=== PATIENT | female | born 1985 | race Caucasian/White ===

== ENCOUNTER 2017-04-26 19:20 | Emergency (ER) | payer BC ==
--- NOTE | 2017-04-26 19:33 | UC ---
Epistaxis Nasal HPI - HPI Summary HPI Summary: 32 YEAR OLD FEMALE PRESENTS WITH COMPLAINS OF RASH ON HER NOSE SECONDARY TO A BIRD CLAW. - History of Current Complaint Stated Complaint: NOSE INJURY SKIN Time Seen by Provider: 04/26/17 19:32 Hx Obtained From: Patient ?: Yes Onset/Duration: Sudden Onset Timing: Constant Severity Initially: Moderate Severity Currently: Moderate Pain Scale Used: 0-10 Numeric - 5 - Allergies/Home Medications Allergies/Adverse Reactions: Allergies Allergy/AdvReac Type Severity Reaction Status Date / Time No Known Allergies Allergy Verified 04/26/17 20:06 Home Medications: Home Medications Fexofenadine (NF) [Elda (NF)] 04/26/17 [History] Levonorgestrel-Eth Estradiol ( [Enpresse-28] 1 tab PO 04/26/17 [History] ValACYclovir (*) [Valtrex 500 mg (*)] 04/26/17 [History] PMH/Surg Hx/FS Hx/Imm Hx Previously Healthy: Yes Review of Systems Constitutional: Negative Skin: Rash - on nose Eyes: Negative ENT: Negative Respiratory: Negative Cardiovascular: Negative Gastrointestinal: Negative Genitourinary: Negative Motor: Negative Neurovascular: Negative Musculoskeletal: Negative Neurological: Negative Psychological: Negative All Other Systems Reviewed And Are Negative: Yes Physical Exam Triage Information Reviewed: Yes Vital Signs Reviewed: Yes Eye Exam: Normal ENT Exam: Normal Dental Exam: Normal Neck exam: Normal Neck: Positive: 1 Respiratory Exam: Normal Cardiovascular Exam: Normal Abdominal Exam: Normal Musculoskeletal Exam: Normal Neurological Exam: Normal Psychological Exam: Normal Skin: Positive: rashes, Other - on nose Epistaxis Nasal Course/Dx - Differential Dx/Diagnosis Provider Diagnoses: skin infection on nose. puncture wound on nose Discharge - Discharge Plan Condition: Stable Disposition: HOME Prescriptions: DOXYcycline CAP(*) [DOXYcycline 100MG CAP(*)] 100 mg PO BID #20 cap Dicloxacillin CAP* [Dynapen CAP*] 500 mg PO QID #40 cap Erythromycin TAB* 500 mg PO QID #40 tab Mupirocin 2% OINT* [Bactroban 2 % Oint*] 1 applic TOPICAL BID #1 tube Patient Education Materials: Cellulitis (ED) Referrals: No Primary Care Phys,NOPCP [Primary Care Provider] -
[2017-04-26 20:06] VITALS: BP 142/86
[2017-04-26] MEDS ORDERED: cefTRIAXone VIAL(*) 1,000 MG VIAL IM ONE (20:23)
[2017-04-26] MEDS ORDERED: CEFOTAXIME 500 MG IM ONE (20:23)
[2017-04-26] MEDS ORDERED: Lidocaine 1% MPF* 2 ML VIAL INJ ONE (20:23)
[2017-04-26] MEDS ORDERED: DOXYcycline CAP(*) 100 MG PO ONE (20:24)
[2017-04-26] MEDS ORDERED: Lidocaine/Epineph/Tetraca SOL* (LET solution) 4 ML BTL TOPICAL ONE (20:25)
== END 2017-04-26 21:00 | disposition home or self-care (01) ==
LOC: UCEAST 19:20
DX: S01.23XA Puncture wound without foreign body of nose, initial encounter (principal); L08.9 Local infection of the skin and subcutaneous tissue, unspecified; W61.99XA Other contact with other birds, initial encounter; Y93.9 Activity, unspecified; Y92.9 Unspecified place or not applicable
CPT/HCPCS: 87070; 96372; 99202; A9270-GY; G0463; J0696